=== PATIENT | male | born 1995 | race African-American/Black ===

== ENCOUNTER 2018-02-22 16:02 | Emergency (ER) | payer BC ==
[~2018-02-22] VITALS: Ht 175.3 cm; Wt 83.9 kg
--- NOTE | 2018-02-22 16:20 | NUR ---
PT WENT OUT TO SMOKE
--- NOTE | 2018-02-22 16:35 | NUR ---
BIB COUNSELOR, PT C/O LT WRIST/HAND INJURY S/P FALL. COUNSELOR STATES PT ON DRUG DETOX. SHE WRAPPED THE EXTREMITY YESTERDAY, TODAY SHE NOTICED SWELLING. PT IS DROWSY, SOFT-SPOKEN. HE IS SLIGHTLY TACHYCARDIC. NO OTHER ABNORMAL VS. SKIN WARM TO TOUCH, DRY, INTACT. STATES PAIN OF 8/10 IN LEFT HAND/WRIST AND ANKLE. READY FOR EVAL. WILL CONT TO MONITOR.
[2018-02-22] MEDS ORDERED: ACETAMINOPHEN 325 MG TABLET PO ONE (17:00)
[2018-02-22] MEDS ORDERED: SULFAMETH/TRIMETH 800/160 MG 1 UDTAB TABLET PO ONE (17:00)
[2018-02-22] MEDS ORDERED: CEPHALEXIN MONOHYDRATE 500 MG CAPSULE PO ONE (17:00)
--- NOTE | 2018-02-22 17:25 | NUR ---
PT BECAME AGITATED. WANTS TO GO HOME. IN THE LINN YELLING AND VERBALLY ABUSING STAFF. SECURITY WAS CALLED. ENCOURAGED HIM BACK TO HIS ROOM TO WAIT ON XRAY RESULTS. PT AGREED.
--- NOTE | 2018-02-22 17:59 | NUR ---
CANCELLED EKG, NOTIFIED
--- NOTE | 2018-02-22 18:20 | NUR ---
[facility] EMT AT BEDSIDE FOR SPLINT APPLICATION
--- NOTE | 2018-02-22 18:35 | NUR ---
Patient discharged to home in stable condition. Written and verbal after care instructions given. Patient verbalizes understanding of instruction.
[2018-02-22 18:40] VITALS: BP 135/76
== END 2018-02-22 18:30 | disposition home or self-care (01) ==
LOC: ER 16:06
DX: S62.022A Displaced fracture of middle third of navicular [scaphoid] bone of left wrist, initial encounter for closed fracture (principal); L03.114 Cellulitis of left upper limb; F17.200 Nicotine dependence, unspecified, uncomplicated; Z60.2 Problems related to living alone; Z86.19 Personal history of other infectious and parasitic diseases; X50.9XXA Other and unspecified overexertion or strenuous movements or postures, initial encounter; Y93.89 Activity, other specified; Y92.89 Other specified places as the place of occurrence of the external cause; Y99.8 Other external cause status
CPT/HCPCS: 73110; 73130-TC; A4606; Z7610